=== PATIENT | male | born 1935 | race Caucasian/White ===

== ENCOUNTER 2018-07-23 04:30 | Observation (INO) | payer MEDICARE, OTHER ==
[~2018-07-23] VITALS: Ht 175.3 cm; Wt 81.3 kg
[2018-07-23] MEDS ORDERED: AMLODIPINE BESYL5 MG PO (04:42)
[2018-07-23] MEDS ORDERED: LISINOPRIL-HCT1 EAC2 PO (04:42)
[2018-07-23] MEDS ORDERED: VENTOLIN HFA18 GM INH (04:43)
[2018-07-23] MEDS ORDERED: ADVAIR HFA 230-12 GM INH (04:43)
[2018-07-23] MEDS ORDERED: ALENDRONATE SOD70 MG PO (04:44)
--- NOTE | 2018-07-23 09:05 | NUR ---
PT ARRIVED TO FLOOR VIA STRETCEHR. REPORTS PAIN IN BACK /. 2L NC IN PLACE. LUNGS COARSE. PT IS AAO. ORIENTED TO ROOM. MEDICATIONS GIVEN AND FLUIDS STARTED. CALL LIGHT IN REACH, DENEIS NEEDS.
--- NOTE | 2018-07-23 09:29 | NUR ---
83YR OLD MAN ADNITTED FROM ER TO ROOM 113 VIA STRETCHER. PT ABLE TO STAND AND TRANSFER ONTO BED WITH ONE PERSON ASSIST. C/O CONT. TO FEEL WEAK WHEN STANDING. ALERT AND ORIENTED. DENIES ANY PAIN. ORIENTED TO ROOM AND CALL LIGHT. STATES HE HAS ALREADY HAD BREAKFAST. ICE WATER GIVEN. DENIES NEED TO VOID. ASKED TO CALL , ASSISTED WITH PHONE CALL.
--- NOTE | 2018-07-23 10:47 | NUR ---
PT RESTING IN BED, NC O2 IN USE. HE IS ALERT AND ORIENTED, AND I THINK STILL TRYING TO FIGURE OUT WHAT HAPPENED. HE MENTIONED THAT HE FELL IN THEIR RV THAT APPARENTLY HE AND HIS LIVE IN, AND COULDN'T GET UP. PT MENTIONED THAT SHE WILL ARRIVE SHORTLY. EXTENDED A BLESSING, WILL CONTINUE TO FOLLOW
--- NOTE | 2018-07-23 11:42 | NUR ---
CALL LIGHT ANSWERED. PATIENT RESTING IN BED. IN ROOM. PATIENT'S IV BEEPING. RN NOTIFIED. CALL LIGHT WITHIN REACH. NO OTHER NEEDS AT THIS TIME
--- NOTE | 2018-07-23 11:54 | NUR ---
Pharmacy reviewed home medication list, [facility]
--- NOTE | 2018-07-23 12:00 | NUR ---
LUNCH TO BEDSIDE. HOB ELEVATED. AT BEDSIDE. CALL LIGHT IN REACH. DENEIS PAIN OR SOB. RESPIRAITONS ARE EQUAL AND NONLABORED. CALL LIGHT IN REACH.
--- NOTE | 2018-07-23 13:26 | NUR ---
PATIENT RESTING IN BED. VITAL SIGNS AND I&O DONE. CALL LIGHT WITHIN REACH. NO OTHER NEEDS AT THIS TIME
--- NOTE | 2018-07-23 15:21 | NUR ---
PT UP TO SHOWER WITH SBA. IN ROOM. DENIES PAIN OR SOB. CALL LIGHT IN REACH.
--- NOTE | 2018-07-23 15:39 | NUR ---
PATIENT SITTING UP IN BED. IN ROOM. PATIENT GOES TO BATHROOM TO TAKE A SHOWER. PATIENT TAKES A SHOWER. SHAVE DONE. ONE PERSON ASSISTING. PATIENT USING A CLEAN GOWN. LINENS CHANGED. PATIENT BACKS TO BED. CALL LIGHT WITHIN REACH. NO OTHER NEEDS AT THIS TIME
--- NOTE | 2018-07-23 17:30 | NUR ---
PATIENT SITTING UP IN BED. VITAL SIGNS AND I&O DONE. CALL LIGHT WITHIN REACH. NO OTHER NEEDS AT THIS TIME
--- NOTE | 2018-07-23 17:33 | EKG ---
[facility] [address] [address] [place], [place] [address] Signed Normal sinus rhythm Left axis deviation Right bundle branch block Inferior infarct , age undetermined Abnormal ECG No previous ECGs available Confirmed by ELIZABET KENNEDY DO ([id number]) on 07/23/2018 5:32:59 PM Electronically Signed By: ELIZABET KENNEDY DO 07/23/18 1733 PATIENT NAME: HUY CONNELL Electrocardiogram DATE OF : 37 PHYSICIAN: ELIZABET KENNEDY DO REPORT #: [id number] REPORT IS CONFIDENTIAL AND NOT TO BE RELEASED WITHOUT AUTHORIZATION
--- NOTE | 2018-07-23 19:07 | NUR ---
SHIFT REPORT RECEIVED FROM DAYSHIFT CHETNA NOGUEIRA AT BEDSIDE. FAMILY IN ROOM. PT AWAKE AND RESTING IN BED, 2LNC IN PLACE. NO DISTRESS NOTED, PT DENIES CHEST PAIN AND SOB. EMESIS BAD AT BEDSIDE FOR SPUTUM PRN. PT DENIES PAIN OR ADDITIONLA NEEDS, CALL LIGHT IN REACH.
--- NOTE | 2018-07-23 21:49 | NUR ---
patients VS and I&Os are complete
--- NOTE | 2018-07-23 21:50 | NUR ---
ASSESSMENT COMPELTE, SCHEDULED MEDICATIONS GIVEN (SEE EMAR). PT A/OX4, DENIES PAIN. VS COLLECTED AND STABLE, PT ON 2LNC, RR WNL. PT REPORTS INTERMITTENT COUGHING WITH THICK GREEN SPUTUM, EMESIS BAG AT BEDSIDE. PT SALINE LOCKED, IV SITE WNL. PT STATES, "THE DOCTOR CAME IN EARLIER TO VISIT ME. I'M GONNA GO HOME EITHER TOMORROW OR THE NEX DAY. I PRAY IT'S THE NEXT DAY. I DON'T WANT TO HAVE TO COME BACK". PT IN GOOD SPIRITS AND LAUGHING. DENIES FURTHER NEEDS, CALL LIGHT IN REACH. FRESH WATER AT BEDSIDE.
--- NOTE | 2018-07-23 23:53 | NUR ---
PT RESTING IN BED, EYES CLOSED. RR WNL, PT ON 2LNC. NO DISTRESS NOTED. PT APPEARS COMFORTABLE. CALL LIGHT IN REACH.
--- NOTE | 2018-07-24 02:02 | NUR ---
VS COLLECTED AND STABLE. PT A/OX4, DENIES PAIN. ASSESSMENT COMPLETE. NO NEW CONCERNS. PT RECENTLY UP SBA TO VOID, 400 OUTPUT. NO FURTHER NEEDS OR QUESTIONS. CALL LIGHT IN REACH.
--- NOTE | 2018-07-24 02:08 | NUR ---
PT HAD UNEVENTFUL EVENING, SLEPT FOR MOST OF THE SHIFT. VSS, PT ON 2LNC. CHRONICALLY AT HOME. SCHEDULED BREATHING TREATMENTS AND IV SOLU-MEDROL. PT SALINE LOCKED, IV SITE WNL. A/OX4, USES CALL [facility] APPROPER[facility]ELY. COUGHING UP GREEN THICK SPUTUM INTERMITTENTLY, EMESIS BAG AT BEDSIDE. PT DENIES PAIN, SCHEDULED TYLENOL. HEART HEALTHY DIET, TOELRATING WELL, NO NAUSEA, BOWEL TONES ACTIVE. VOIDING QS, NO BM THIS SHIFT. LAST BM APPROX 07/20. SBA WITH AMBULATION, PT AND OT ORDERS. IS AND CHEST PHYSIOTHERAPY. PLAN TO DISCHARGE EITHER TODAY OR TOMORROW.
--- NOTE | 2018-07-24 02:54 | NUR ---
PT RESTING IN BED, EYES CLOSED, RR WNL. PT ON 2LNC, NO DISTRESS NOTED. PT APPEARS COMFORTABLE. CALL LIGHT IN REACH.
--- NOTE | 2018-07-24 06:30 | NUR ---
scheduled iv solu-medrol administered (see emar). iv site wnl. pt denies additional needs, appears in good spirits. call light in reach.
--- NOTE | 2018-07-24 07:36 | NUR ---
Pt awake, alert and oriented x3. Pt denies pain at this time. Personal supplies and call light within reach. No needs at this time.
--- NOTE | 2018-07-24 18:14 | NUR ---
PT A&OX3. 2L NC CHRONIC. STANDBY ASSIST TO BR. TOLERATING DIET. D/C TMRW IS PLAN.
--- NOTE | 2018-07-24 19:15 | NUR ---
SHIFT REPORT RECEIVED FROM DAYSHIFT CHETAN MCCLELLAN AT BEDSIDE. PT RESTING IN BED, AWAKE, RR WNL. 2LNC IN PLACE. THROAT LOZENGE PROVIDED TO PT FROM CHETAN MCCLELLAN. PT DENIES ADDITIONAL NEEDS, CALL LIGHT IN REACH.
--- NOTE | 2018-07-24 20:02 | NUR ---
patient used call light to ask for assistance into the restroom. He did not need anything further at this time. Call light and BST in place.
--- NOTE | 2018-07-24 20:30 | NUR ---
ASSESSMENT COMPLETE, SCHEDULED MEDICATIONS GIVEN (SEE EMAR). PT A/OX4, DENIES PAIN. VS STABLE AND RECORDED. PT DENIES CHEST PAIN OR SOB AT THIS TIME. 2LNC IN PLACE, CHRONICALLY. RR WNL, ACAPELLA AT BEDSIDE. NO DISTRESS NOTED, PT APPEARS COMFORTABLE. NO FURTHER NEEDS, CALL LIGHT IN REACH.
--- NOTE | 2018-07-24 21:23 | NUR ---
Patient wanted to use the restroom to do his nightly routine. He brushed his teeth, washed his face, and flossed. he tried to use the restroom but did not result.
--- NOTE | 2018-07-24 23:25 | NUR ---
PT RESTING IN BED, EYES CLOSED, RR WNL. 2LNC IN PLACE PT APPEARS COMFORTABLE AND NO DISTRESS IS NOTED. CALL LIGHT IN REACH.
--- NOTE | 2018-07-25 00:10 | NUR ---
PT CALLED TO USE THE RESTROOM, SBA. HE IS BACK IN BED AND DENIES FURTHER NEEDS. CALL LIGHT IS WITHIN REACH.
--- NOTE | 2018-07-25 02:27 | NUR ---
PT RESTING IN BED, EYES CLOSED, RR WNL. 2LNC IN PLACE. PT APPEARS COMFORTABLE. NO SIGNS OF DISTRESS NOTED. CALL LIGHT IN REACH.
--- NOTE | 2018-07-25 03:13 | NUR ---
PT CALLED TO USE RESTROOM, SBA. HE IS BACK IN BED AT THIS TIME WITH CALL LIGHT CLOSE AND HE DENIES FURTHER NEEDS.
--- NOTE | 2018-07-25 03:27 | NUR ---
ASSESSMENT COMPLETE, NO NEW CONERNS OR ISSUES. PT A/OX4, DENIES PAIN. DROWSY, BUT AWAKENS EASILY FOR ASSESSMENT. 2L NC IN PLACE, RR WNL. NO SIGNS OF DISTRESS. FRESH WATER AT BEDSIDE. CALL LIGHT IN REACH.
--- NOTE | 2018-07-25 04:45 | NUR ---
PT HAD VERY UNEVENTFUL NIGHT, SLEPT FOR MOST OF SHIFT. A/OX4, VSS, 2L NC IN PLACE. PT DENIED PAIN ALL SHIFT. SBA WITH AMBULATION, USES CALL LIGHT APPROPERIATELY. SCHEDULED BREATHING TREATMENTS, IV AND PO ABX. HEART HEALTHY DIET, NO NAUSEA THIS SHIFT. BOWEL TONES ACTIVE.
--- NOTE | 2018-07-25 05:57 | NUR ---
VSS AND RECORDED. PT ON 2LNC, NO DISTRESS NOTED. PT UP SBA TO VOID. PT WASHED FACE AND BRUSHED TEETH. PT NOW RESTING IN BED. FRESH WATER AT BEDSIDE. ROOM TIDED. CALL LIGHT IN REACH. NO FURTHER NEEDS, PT APPEARS IN GOOD SPIRITS.
--- NOTE | 2018-07-25 07:30 | NUR ---
REPORT RECEIVED FROM CHETAN RAY. PT AWAKE AND SITTING UP IN CHAIR. PT STATES HE HAD A GOOD NIGHT SLEEP AND IS LOOKING FORWARD TO GOING HOME CÉSAR.
--- NOTE | 2018-07-25 08:53 | NUR ---
ADMINISTERED SCHEDULED MEDICATION. 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
[2018-07-25] MEDS ORDERED: PREDNISONE20 MG PO ×2 (09:58→10:00)
[2018-07-25] MEDS ORDERED: DOXYCYCLINE HY100 MG PO (09:59)
== END 2018-07-25 11:50 | disposition home or self-care (01) ==
LOC: ED 04:30 → MS 04:32
PROVIDERS: ADMIT Student in an Organized Health Care Education/Training Program
DX: J18.9 Pneumonia, unspecified organism (principal); J44.1 Chronic obstructive pulmonary disease with (acute) exacerbation; J44.0 Chronic obstructive pulmonary disease with (acute) lower respiratory infection; I10 Essential (primary) hypertension; J96.21 Acute and chronic respiratory failure with hypoxia; M54.9 Dorsalgia, unspecified; Z99.81 Dependence on supplemental oxygen; Z87.891 Personal history of nicotine dependence; Z79.83 Long term (current) use of bisphosphonates; Z79.51 Long term (current) use of inhaled steroids; Z79.899 Other long term (current) drug therapy
CPT/HCPCS: 36415; 71045; 71260; 80048; 80053; 81001; 83605; 83735; 83880; 84484; 85025; 85379; 85610; 85730; 93005; 93010; 94640; 94667; 94668; 96366; 96372; 96376; 97162; 97165; 99285-25; G0378; J0696; J1650; J2920; J2930; J7120; J7512; Q9967